=== PATIENT | female | born 1970 | race Caucasian/White ===

== ENCOUNTER 2020-03-04 21:23 | Emergency (ER) | payer MEDICAID, SELFPAY ==
[~2020-03-04] VITALS: Ht 149.9 cm; Wt 74.4 kg
[2020-03-04 21:31] VITALS: Ht 149.9 cm; Wt 74.4 kg
[2020-03-04 21:58] VITALS: BP 113/74
== END 2020-03-04 21:58 | disposition home or self-care (01) ==
LOC: ED 21:23
DX: U07.1 COVID-19 (principal)
CPT/HCPCS: U0003-CS

== ENCOUNTER 2020-06-05 19:38 | Emergency (ER) | payer MEDICAID ==
[~2020-06-05] VITALS: Ht 149.9 cm; Wt 75.3 kg
[2020-06-05 19:45] VITALS: Ht 149.9 cm; Wt 75.3 kg
[2020-06-05 20:48] LABS: BASOPHIL % 0.3 % (0-2); PLATELET COUNT 298 x10^3mcL (130-400); RED CELL DISTRIBUTION WIDTH 12.9 % (11.5-14.5)
[2020-06-05 21:09] LABS: CALCIUM 8.9 mg/dL (8.5-10.1); CARBON DIOXIDE 28.5 mmol/L (21-32); CHLORIDE SERUM 106 mmol/L (98-107); GFR1 > 60 mL/min; GLUCOSE SERUM 109 mg/dL (74-106); POTASSIUM SERUM 3.7 mmol/L (3.5-5.1); SODIUM SERUM 142 mmol/L (136-145)
[2020-06-05 21:14] LABS: ALBUMIN 3.6 g/dL (3.4-5.0); ALKALINE PHOSPHATASE 67 U/L (46-116); ALT/SGPT 41 U/L (14-59); AST/SGOT 24 U/L (15-37); BILIRUBIN TOTAL 0.3 mg/dL (0.20-1.00); LIPASE 77 IU/L (73-393)
[2020-06-05 22:10] LABS: microscopic required? YES; urine erythrocyte TRACE (NEGATIVE)
[2020-06-05 23:18] VITALS: BP 104/54
== END 2020-06-05 23:18 | disposition home or self-care (01) ==
LOC: ED 19:38
PROVIDERS: Emergency Medicine
DX: R10.9 Unspecified abdominal pain (principal); R11.0 Nausea
CPT/HCPCS: J1885; J7030

== ENCOUNTER 2020-09-21 14:46 | Emergency (ER) | payer MEDICAID ==
[~2020-09-21] VITALS: Ht 162.6 cm; Wt 75.7 kg
[2020-09-21 15:09] VITALS: Ht 162.6 cm; Wt 75.7 kg
[2020-09-21 17:56] VITALS: BP 102/59
== END 2020-09-21 17:56 | disposition home or self-care (01) ==
LOC: ED 14:46
DX: S93.402A Sprain of unspecified ligament of left ankle, initial encounter (principal); E11.9 Type 2 diabetes mellitus without complications; W10.9XXA Fall (on) (from) unspecified stairs and steps, initial encounter; Y93.89 Activity, other specified; Y92.89 Other specified places as the place of occurrence of the external cause; Y99.8 Other external cause status